=== PATIENT | male | born 1995 | race Two or more races ===

== ENCOUNTER 2019-07-30 23:59 | Emergency (ER) | payer OTHER ==
--- NOTE | 2019-07-31 00:36 | EDM.PDOC ---
ED HPI GENERAL MEDICAL PROBLEM - General Chief Complaint: Upper Extremity Injury/Pain Stated Complaint: PAIN IN RIGHT ARM Time Seen by Provider: 07/31/19 00:16 - History of Present Illness INITIAL COMMENTS - FREE TEXT/NARRATIVE: HISTORY AND PHYSICAL: History of present illness: The patient is a 24 y/o male who presents with right elbow pain with certain movements that has been ongoing for the last 1 week. 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 He has taken ibuprofen sporadically through the last week but has not been using any ice. The patient does not live here locally and is from [place]. He doesn't recall any fall or direct blow to the area and he has no distal forearm wrist or hand pain and no proximal shoulder or clavicle pain. He has no other systemic complaints Review of systems: As per history of present illness and below otherwise all systems reviewed and negative. Past medical history: As per history of present illness and as reviewed below otherwise noncontributory. Surgical history: As per history of present illness and as reviewed below otherwise noncontributory. Social history: No reported history of drug or alcohol abuse. Family history: As per history of present illness and as reviewed below otherwise noncontributory. Physical exam: General: Well-developed well-nourished man who is nontoxic and vital signs are noted by me HEENT: Atraumatic, normocephalic, negative for conjunctival pallor or scleral icterus, mucous membranes moist, throat clear, neck supple, nontender, trachea midline. Lungs: Clear to auscultation, breath sounds equal bilaterally, chest nontender. Heart: S1S2, regular and rhythm no overt murmurs Abdomen: Soft, nondistended, nontender. NABS Pelvis: Deferred Genitourinary: Deferred. Rectal: Deferred. Extremities: Atraumatic, and full range of motion of all extremities with the exception of the right elbow where there is no bony defect or alignment or abnormalities appreciated on visual inspection or palpation but there is discrete tenderness along the inferior aspect of the triceps and the insertions of the triceps. There is no joint effusion erythema or warmth. The patient can passively and actively range of motion but on full extension and triceps engagement the patient complains of some discomfort, legs are negative for cords or calf pain. Neurovascular unremarkable. Neuro: Awake, alert, oriented. Cranial nerves II through XII unremarkable. Cerebellum unremarkable. Motor and sensory unremarkable throughout. Exam nonfocal. Diagnostics: X-ray right elbow Therapeutics: he declines Toradol Impression: Right elbow pain Definitive disposition and diagnosis as appropriate pending reevaluation and review of above. right elbow Pain Score (Numeric/FACES): 6 - Related Data Allergies Allergy/AdvReac Type Severity Reaction Status Date / Time Penicillins Allergy Abdominal Verified 07/31/19 00:39 Pain Home Meds: Home Meds . [No Known Home Meds] 07/31/19 [History] Past Medical History - Past Health History Medical/Surgical History: Denies Medical/Surgical History Social & Family History - Family History Family Medical History: Noncontributory - Tobacco Use Smoking Status *Q: Never Smoker - Recreational Drug Use Recreational Drug Use: No Review of Systems - Review of Systems Review Of Systems: ROS reveals no pertinent complaints other than HPI. ED EXAM, GENERAL - Physical Exam Exam: See Below (see dictation) Course - Vital Signs Last Recorded V/S: Last Vital Signs Temp 36.3 C 07/31/19 00:10 Pulse 63 07/31/19 00:10 Resp 18 07/31/19 00:10 BP 121/64 07/31/19 00:10 Pulse Ox 98 07/31/19 00:10 Departure - Departure Time of Disposition: 01:32 Disposition: Home, Self-Care 01 Condition: Good Clinical Impression: Right elbow pain - Discharge Information Referrals: PCP,None [Primary Care Provider] - Forms: ED Department Discharge Additional Instructions: The following information is given to patients seen in the emergency department who are being discharged to home. This information is to outline your options for follow-up care. We provide all patients seen in our emergency department with a follow-up referral. The need for follow-up, as well as the timing and circumstances, are variable depending upon the specifics of your emergency department visit. If you don't have a primary care physician on staff, we will provide you with a referral. We always advise you to contact your personal physician following an emergency department visit to inform them of the circumstance of the visit and for follow-up with them and/or the need for any referrals to a consulting specialist. The emergency department will also refer you to a specialist when appropriate. This referral assures that you have the opportunity for followup care with a specialist. All of these measure are taken in an effort to provide you with optimal care, which includes your followup. Under all circumstances we always encourage you to contact your private physician who remains a resource for coordinating your care. When calling for followup care, please make the office aware that this follow-up is from your recent emergency room visit. If for any reason you are refused follow-up, please contact the [facility] emergency department at and ask to speak to the emergency department charge nurse. Dr Sinha, Orthopedist [facility] [address] [place] [address] Dr Ruiz - Dr Tom - Dr Pham [facility] [address] [place] [address] [facility] [address] [place] [address] Please call and schedule a follow-up appointment with an continuous improvement specialist either here or when you go home to [place]. You have been given resources above to our local orthopedic surgeons as we do not have one here at our hospital any longer. After all activities especially work ice the area down to reduce inflammation and continue to use [id number] ibuprofen, 800 mg every 8 hours, for pain management. Return to ER as needed and as discussed. Try to explore your work environment and your activities to see if there is a particular movement that triggers the pain or particular activity that makes it worse as this will help your continuous improvement specialist.
--- NOTE | 2019-07-31 01:15 | CR ---
3 VIEWS right elbow. INDICATION: Pain. IMPRESSION: No visualized fracture. Alignments anatomic. Joint spaces unremarkable. Dictated by Phoenix Tejeda MD @ Jul 31 2019 1:13AM Signed by Dr. Phoenix Tejeda @ Jul 31 2019 1:14AM
== END 2019-07-31 01:49 | disposition home or self-care (01) ==
LOC: MW.ED 23:59
DX: M25.521 Pain in right elbow (principal); Z88.0 Allergy status to penicillin
CPT/HCPCS: 73080-26-RT; 73080-RT; 99283-25